=== PATIENT | male | born 1985 | race Caucasian/White ===

== ENCOUNTER 2018-02-23 20:37 | Emergency (ER) | payer BC ==
[~2018-02-23] VITALS: Ht 188 cm; Wt 94.9 kg
[2018-02-23] MEDS ORDERED: PREDNISONE10 MG PO (22:29)
[2018-02-23] MEDS ORDERED: VALIUM5 MG PO (22:29)
[2018-02-23 22:44] VITALS: BP 156/101
== END 2018-02-23 22:45 | disposition home or self-care (01) ==
LOC: EME 20:37
DX: M54.42 Lumbago with sciatica, left side (principal); J30.81 Allergic rhinitis due to animal (cat) (dog) hair and dander; Z87.891 Personal history of nicotine dependence
CPT/HCPCS: 73502; 99281; 99283; J1100